=== PATIENT | female | born 1995 ===

== ENCOUNTER 2017-04-24 00:29 | Emergency (ER) | payer OTHER ==
[2017-04-24 01:01] VITALS: PULSE 86; RESP 15; TEMP 98.6; O2SAT 100
[2017-04-24 02:34] VITALS: BP 128/74
--- NOTE | 2017-04-24 02:35 | ED PDOC ---
HPI: CCC, URI, Sore Throat Time Seen by Provider: 04/24/17 00:51 Chief Complaint (Nursing): ENT Problem Chief Complaint (Provider): Throat Pain History Per: Patient History/Exam Limitations: no limitations Have you had recent travel within the past 21 days to any of the following countries: [place], [place], [place] or [place]?: No Onset/Duration Of Symptoms: Days (x1 day) Current Symptoms Are (Timing): Still Present Location Of Pain: Throat Associated Symptoms: denies: Cough, Vomiting Additional Complaint(s): Hayde Kitchen, a 21 year old female, a presents to the ED complaining of throat pain x1 day. The patient states that the pain is mild and she also thought she had a fever but did not check her temperature. Patient also reports that she has a small amount of itchy rashes on her arms and legs. she states that she was taking benadryl for the rashes but they are currently still there. Denies vomiting, cough, shortness of breath, allergies and headache. Past Medical History Reviewed: Historical Data, Nursing Documentation, Vital Signs Vital Signs: Last Vital Signs Temp 98.6 F 04/24/17 00:40 Pulse 86 04/24/17 00:40 Resp 15 04/24/17 00:40 BP 128/74 04/24/17 02:33 Pulse Ox 100 04/24/17 02:40 - Medical History PMH: No Chronic Diseases - Surgical History Surgical History: No Surg Hx - Family History Family History: States: Unknown Family Hx - Home Medications Home Medications: Ambulatory Orders Medication Instructions Recorded Prednisone [Deltasone] 20 mg PO DAILY #4 tablet 04/24/17 - Allergies Allergies/Adverse Reactions: Allergies Allergy/AdvReac Type Severity Reaction Status Date / Time No Known Allergies Allergy Verified 04/24/17 01:01 Review of Systems ROS Statement: Except As Marked, All Systems Reviewed And Found Negative Constitutional: Positive for: Fever (subjective fever) ENT: Positive for: Throat Pain (mild) Respiratory: Negative for: Cough, Shortness of Breath Gastrointestinal: Negative for: Vomiting Neurological: Negative for: Headache Physical Exam - Reviewed Nursing Documentation Reviewed: Yes Vital Signs Reviewed: Yes - Physical Exam Appears: Positive for: Non-toxic, No Acute Distress Head Exam: Positive for: ATRAUMATIC, NORMAL INSPECTION, NORMOCEPHALIC Skin: Positive for: Warm, Dry, Rash (Rash papular rash very limited spread on arms and legs.) Eye Exam: Positive for: Normal appearance, EOMI, PERRL ENT: Positive for: Other (mild erythema in throat.) Cardiovascular/Chest: Positive for: Regular Rate, Rhythm, Chest Non Tender. Negative for: Tachycardia Respiratory: Positive for: Normal Breath Sounds. Negative for: Wheezing, Respiratory Distress Neurologic/Psych: Positive for: Alert, Oriented, Gait - ECG O2 Sat by Pulse Oximetry: 100 (RA) Pulse Ox Interpretation: Normal Medical Decision Making Medical Decision Makin Initial Impression: 21 year old female presenting with tonsillitis vs pharyngitis vs allergic papular rash Initial Plan: * Motrin Tab 400mg PO * Prednisone 60mg PO * throat Culture * Reevaluation Scribe Attestation Documented by Chrissy Traore acting as a scribe for Kristofer Ibarra MD. Provider Attestation: All medical record entries made by the Scribe were at my direction and personally dictated by me. I have reviewed the chart and agree that the record accurately reflects my personal performance of the history, physical exam, medical decision making, and the department course for this patient. I have also personally directed, reviewed, and agree with the discharge instructions and disposition. Disposition - Clinical Impression Clinical Impression: Pharyngitis - Patient ED Disposition Is Patient to be Admitted: No Doctor Will See Patient In The: Office Counseled Patient/Family Regarding: Studies Performed, Diagnosis, Need For Followup - Disposition Referrals: [facility] [Outside] Disposition: Routine/Home Disposition Time: 02:45 Condition: GOOD Additional Instructions: Take advil for sore throat and benadryl for rash. Take your medications as instructed. Follow up with your PCP in 2-3 days. Prescriptions: Prednisone [Deltasone] 20 mg PO DAILY #4 tablet Instructions: Pharyngitis (ED), Acute Rash (ED) Print Language: SWEDISH
== END 2017-04-24 02:35 | disposition home or self-care (01) ==
LOC: H.ER 00:29
DX: J02.9 Acute pharyngitis, unspecified (principal); R21 Rash and other nonspecific skin eruption